=== PATIENT | female | born 1995 | race Two or more races ===

== ENCOUNTER → 2018-06-14 11:40 | Outpatient (CLI) | payer OTHER, SELFPAY ==
[2018-06-14 12:10] LABS: Basophils % 0.4 % (0.1-2.0); Eosinophils # 0.1 K/mm3 (0.0-0.4); Eosinophils % 1.3 % (0.1-12.0); Hematocrit 33.8 % (37.0-47.0); Hemoglobin 11.2 g/dL (12.2-16.2); Lymphocytes # 1.9 K/mm3 (0.7-4.5); Lymphocytes % 22.5 K/mm3 (10-50); Mean Corpuscular HGB Conc 33.2 g/dL (31.8-35.4); Mean Corpuscular Hemoglobin 28.5 pg (27.0-31.2); Mean Corpuscular Volume 85.9 fl (81-99); Mean Platelet Volume 7.8 fl (7.4-10.4); Monocytes # 0.4 K/mm3 (0.1-1.0); Neutrophils # 6.2 K/mm3 (1.8-7.8); Neutrophils % 71.8 % (37.0-80.0); Platelet Count 225 K/mm3 (142-424); Red Blood Count 3.93 M/mm3 (4.20-5.40); Red Cell Distribution Width 14.3 % (11.5-17.5); White Blood Count 8.6 K/mm3 (4.8-10.8)
[2018-06-15 19:04] LABS: HIV Screen 4th Generation wRfx Non Reactive (Non Reactive)
[2018-06-15 19:05] LABS: Hepatitis B Surface Antigen Negative (Negative); Hepatitis C Antibody 0.1 s/co ratio (0.0-0.9)
== END ==
PROVIDERS: Visit Provider Obstetrics & Gynecology
DX: Z34.90 Encounter for supervision of normal pregnancy, unspecified, unspecified trimester (principal)
CPT/HCPCS: 36415; 85025; 86592; 86703; 86762; 86850; 87086; 87088; 87340; 87380; G0432

== ENCOUNTER → 2018-07-12 10:36 | Outpatient (CLI) | payer OTHER, SELFPAY ==
--- NOTE | 2018-07-12 10:38 | US_ITS ---
US OB /maternal detail: INDICATION: ITS.REASON: US OB Complete ORDERING PHYSICIAN: Mandie Patton MD PATIENT AGE: 23 years TECHNIQUE: ultrasound transabdominal scanning. COMPARISON: No previous relevant studies. FINDINGS: Single viable intrauterine gestation. Breech position. Placenta: Anterior placenta grade 1. There is average amount fluid. The cervix appears satisfactory. Closed and measuring 3.7 cm in length. Complete survey performed and was unremarkable on the submitted images as in PACS. No discrete anomalies identified on survey imaging by technologist. Active fetus. Three-vessel cord with satisfactory umbilical cord insertion. 4- chamber heart noted. Survey of brain & ventricles unremarkable. Face and neck survey unremarkable. Diaphragm and chest views unremarkable. Abdomen: Both kidneys noted and unremarkable. Stomach noted and satisfactory. Spine: Survey of the spine satisfactory with no anomalies identified nor imaged. Both arms and legs noted. Amniotic Fluid: Adequate. Maternal adnexa: No significant findings. Measurements: Average ultrasound age 19w6d. Gestational Age 20w1d. Estimated due date by ultrasound age 0211/30/2018. Estimated weight 313 grams. BPD = 20w0d OFD = 20w4d HC = 19w4d AC = 19w5d FL = 20w0d Growth Percentile= 27% Heart Rate = 143 bpm Cerebellum = 19w6d Humerus = 19w6d HC/AC is 1.18 (1.09-1.26). CI is 76% (70-86%). FL/BPD is 69 %. FL/AC is 22%. IMPRESSION: There is a single live fetus in breech presentation. Average ultrasound age is 19 weeks and 6 days. All parameters correlate. No obvious anomalies. Placenta is anterior and grade 1 without evidence of previa. Please see above for detail
== END ==
PROVIDERS: Visit Provider Obstetrics & Gynecology
DX: Z36.0 Encounter for antenatal screening for chromosomal anomalies (principal)
CPT/HCPCS: 76811

== ENCOUNTER → 2018-08-22 08:21 | Outpatient (CLI) | payer OTHER, SELFPAY ==
[2018-08-22 08:45] LABS: Glucose,Fasting 76 mg/dL (60-105)
[2018-08-22 10:18] LABS: Glucose 1 Hour 105 mg/dL (74-106)
== END ==
PROVIDERS: Visit Provider Obstetrics & Gynecology
DX: Z34.90 Encounter for supervision of normal pregnancy, unspecified, unspecified trimester (principal)
CPT/HCPCS: 36415; 82951

== ENCOUNTER → 2018-10-18 11:31 | Outpatient (CLI) | payer OTHER, SELFPAY ==
[2018-10-18 12:17] LABS: Basophils # 0.1 K/mm3 (0-0.2); Basophils % 0.6 % (0.1-2.0); Eosinophils # 0.2 K/mm3 (0.0-0.4); Eosinophils % 1.7 % (0.1-12.0); Hematocrit 34.5 % (37.0-47.0); Hemoglobin 10.9 g/dL (12.2-16.2); Lymphocytes # 2.6 K/mm3 (0.7-4.5); Lymphocytes % 29.3 % (10-50); Mean Corpuscular HGB Conc 31.6 g/dL (31.8-35.4); Mean Corpuscular Hemoglobin 26.2 pg (27.0-31.2); Mean Corpuscular Volume 82.7 fl (81-99); Mean Platelet Volume 8.9 fl (7.4-10.4); Monocytes # 0.4 K/mm3 (0.1-1.0); Monocytes % 4.2 % (1.7-9.3); Neutrophils # 5.7 K/mm3 (1.8-7.8); Neutrophils % 64.2 % (37.0-80.0); Platelet Count 291 K/mm3 (142-424); Red Blood Count 4.18 M/mm3 (4.20-5.40); Red Cell Distribution Width 13.7 % (11.5-17.5); White Blood Count 8.8 K/mm3 (4.8-10.8)
[2018-10-18 14:32] LABS: Alanine Aminotransferase 26 U/L (12-78); Albumin Level 2.5 gm/dL (3.4-5.0); Albumin/Globulin Ratio 0.6 (1.1-1.8); Alkaline Phosphatase 261 U/L (46-116); Anion Gap 15.8 mEq/L (5-15); Aspartate Amino Transferase 26 U/L (15-37); Bilirubin,Total 0.4 mg/dL (0.2-1.0); Blood Urea Nitrogen 9 mg/dL (7-18); Calcium 8.3 mg/dL (8.5-10.1); Carbon Dioxide 21 mmol/L (21.0-32.0); Chloride 103 mmol/L (98-107); Creatinine,Serum 0.59 mg/dL (0.55-1.02); Estimated Glomerular Filt Rate 127 ml/min (>60); GFR (African American) 154 ML/MIN (>60); Globulin 4.1 gm/dl (1.3-3.2); Glucose 93 mg/dL (74-106); Potassium 3.8 mmoL/L (3.5-5.1); Sodium 136 mmol/L (136-145); Total Protein,Serum 6.6 gm/dL (6.4-8.2); Uric Acid 4.5 mg/dL (2.6-7.2)
== END ==
PROVIDERS: Visit Provider Obstetrics & Gynecology
DX: Z34.90 Encounter for supervision of normal pregnancy, unspecified, unspecified trimester (principal)
CPT/HCPCS: 36415; 80053; 82239; 84550; 85025

== ENCOUNTER → 2018-11-01 17:42 | Outpatient (CLI) | payer OTHER, SELFPAY | PROVIDERS: Visit Provider Obstetrics & Gynecology | DX: Z34.90 Encounter for supervision of normal pregnancy, unspecified, unspecified trimester (principal) | CPT/HCPCS: 86403 ==

== ENCOUNTER 2018-11-21 06:11 | Inpatient (IN) ==
[2018-11-21 11:19] LABS: Basophils % 0.4 % (0.1-2.0); Eosinophils # 0.1 K/mm3 (0.0-0.4); Eosinophils % 0.7 % (0.1-12.0); Hematocrit 35.4 % (37.0-47.0); Hemoglobin 11.4 g/dL (12.2-16.2); Lymphocytes # 1.5 K/mm3 (0.7-4.5); Lymphocytes % 18.9 % (10-50); Mean Corpuscular HGB Conc 32.2 g/dL (31.8-35.4); Mean Corpuscular Hemoglobin 26.4 pg (27.0-31.2); Mean Corpuscular Volume 82.3 fl (81-99); Mean Platelet Volume 11.5 fl (7.4-10.4); Monocytes # 0.2 K/mm3 (0.1-1.0); Monocytes % 2.6 % (1.7-9.3); Neutrophils # 6.1 K/mm3 (1.8-7.8); Neutrophils % 77.4 % (37.0-80.0); Platelet Count 205 K/mm3 (142-424); Red Blood Count 4.31 M/mm3 (4.20-5.40); Red Cell Distribution Width 16.7 % (11.5-17.5); White Blood Count 7.9 K/mm3 (4.8-10.8)
[2018-11-21 14:04] LABS: Microscopic, Urine URINE MICROSCOPIC (MICROSCOPIC)
[2018-11-21 14:06] LABS: Appearance,Urine CLEAR (Clear); Bilirubin,Urine Negative (Negative); Blood, Urine TRACE-I (Negative); Color,Urine YELLOW (Yellow); Glucose,Urine (UA) Negative (Negative); Ketones,Urine Negative (Negative); Leukocyte Esterase,Urine 1+ (Negative); Protein,Urine Negative (Negative); Urobilinogen,Urine 0.2 EU/dl (0.2)
[2018-11-21 14:27] LABS: Bacteria,Urine 1+ /lpf; RBC,Urine Occasional #/hpf (0-3)
--- NOTE | 2018-11-21 18:04 | History & Physical Report ---
OB - H&P: HPI Antepartum - History of Present Illness Chief complaint: contractions History of present illness: 23 yo G1 @ 38+ wks moldovan speaking only patient presented to triage this am with complaint of contractions/pain. History obtained with assistance of parts room assistant. Contractions began approximately 2am; no LOF or VB. Normal FM. care has been at [facility] and has been largely uncomplicated. Initial labs showed +VDRL but confirmatory testing with Health depart ment was negative. - History of Present care: good care [facility] History I have reviewed the patient's past medical history: Yes Medical History: Denies:: Anxiety, Depression, Diabetes Mellitus Type 1, MRSA, Seizures *Have you ever received a pneumonia vaccine?: No *Have you received a flu vaccine this season?: No Other Surgeries: No: Amputation: No Fractures: No - *Social History Smoking Status: Never smoker Alcohol Intake: never Substance Use Type: denies use *Occupational Status:: unemployed - Psychiatric History Pschychiatric History:: Denies:: Anxiety, Depression Family Hx:: No significant family history Para: 0 Review of Systems - Review of Systems CONSTITUTIONAL: no fever/chills HEENT: no oral lesions PULMONARY: no shortness of breath or difficulty breathing CV: no racing heart, palpitations or chest pain ABD: no abdominal pain, N/V : + contractions SKIN: no new rash or skin lesions EXT: no edema NEURO: no mental status changes PSYCH: no current anxiety/depression Meds Home Medications Medication Instructions Recorded Confirmed Type 1 tab PO HS 05/10/18 11/21/18 History vitamin,calcium,pmbcelyw-wyoo-ewcrf acid tablet Allergies Allergy/AdvReac Type Severity Reaction Status Date / Time No Known Allergies Allergy Verified 11/08/18 11:13 OB - H&P: Exam - Physical Exam Vital signs: Temp Pulse Resp BP Pulse Ox 98.2 F 59 L 20 129/80 98 11/21/18 06:52 11/21/18 06:52 11/21/18 06:52 11/21/18 06:52 11/21/18 06:52 Narrative: CONSTITUTIONAL: no acute distress HEENT: mucous membranes moist PULMONARY: breathing unlabored without audible wheezes CV: no tachycardia or visible JVD; normal LE peripheral pulses ABD: soft, NT/ND, no guarding. Gravid uterus. : cervix 3/90/0c AROM with thick meconium noted. IUPC and FSE placed without difficulty. SKIN: no visible rash or lesions HEME: no lymphadenopathy EXT: 1+ edema LEs NEURO: alert/oriented, no altered mental status PSYCH: appropriate mood and demeanor without visible anxiety/depression NST: [place]: 150 Variability: moderate Accelerations: yes Decelerations: no Impression: Reactive, Category 1 OB - Results - Labs Labs: Short CBC 11/21/18 Range/Units 09:35 WBC 7.9 (4.8-10.8) K/mm3 Hgb 11.4 L (12.2-16.2) g/dL Hct 35.4 L (37.0-47.0) % Plt Count 205 (142-424) K/mm3 Urine 11/21/18 Range/Units 07:25 Urine Color Yellow (Yellow) Urine Appearance Clear (Clear) Urine pH 6.0 (5.0-8.5) Ur Specific [place] 1.020 (1.005-1.030) Urine Protein Negative (Negative) Urine Glucose (UA) Negative (Negative) OB - A/P Antepartum (1) 38 weeks gestation of Current visit: Yes Status: Acute (2) Language barrier affecting health care Problem details: Monegasque speaking only Current visit: Yes Status: Acute (3) Active labor at term Current visit: Yes Status: Acute (4) Meconium in amniotic fluid Current visit: Yes Status: Acute (5) Anemia affecting Problem details: Hgb 10.9 Current visit: Yes Status: Acute - Additional Plan Additional Information:: Admission for active labor Plasterer Maintenance assistance during labor, delivery and Considering options for pain medication but undecided at this point Continuous monitoring with FSE Peds present for delivery with thick meconium
--- NOTE | 2018-11-21 18:18 | Procedure Note ---
- Delivery Note Delivery Date:: 11/21/18 Delivery Time:: 15:30 Anesthesia Type: None Was labor medically induced?: No Gestational age (weeks): 38 delivered prior to 39 weeks?: Yes Justification for early elective delivery:: Active Labor Infant Gender: Female at 1 minute: 7 at 5 minutes: 9 Delivery Procedure:: Spontaneous vaginal delivery of vigorous liveborn female infant over intact perineum. Apgars: 7 & 9 Delivery uncomplicated; no shoulder dystocia with delivery Nuchal cord x 1 reduced on perineum taken to warmer for outreach and education social worker assessment immediately after umbilical cord clamped/cut Placenta spontaneously expressed and examined; noted to be complete/intact. Vulva, vagina, and cervix inspected; 2nd degree laceration repaired with 2-0 vicryl after subcutaneous injection of 8cc lidocaine 1% (without epi) Total EBL: 200cc All sponge/needle/instrument counts correct at conclusion of procedure Disposition: Mom/baby stable to recovery in LDRP Laceration:: vaginal Placental Delivery Description: Spontaneous
[2018-11-22 06:55] LABS: Hematocrit 28.7 % (37.0-47.0)
[2018-11-22 07:32] LABS: Hemoglobin 9.6 g/dL (12.2-16.2)
[2018-11-22 08:30] VITALS: BP 129/80
--- NOTE | 2018-11-22 18:42 | Progress Note ---
Internal Medicine - PN: Subj *Date: 11/22/18 *Time: 12:10 Interval history: PPD #1 No complaints Exam Vital signs and Labs for Last 24 Hours: Temp Pulse Resp BP Pulse Ox 97.9 F 168 H 72 H 129/80 98 11/21/18 18:00 11/21/18 18:00 11/21/18 18:00 11/21/18 06:52 11/21/18 06:52 Laboratory Results - last 24 hr 11/22/18 06:20: Hgb 9.6 L D, Hct 28.7 L I & O for Last 24 hours: Intake & Output 11/20/18 11/21/18 11/22/18 11/23/18 11:59 11:59 11:59 11:59 Intake Total Balance Weight 123 lb Microbiology Reports for the Last 24 Hours: Microbiology 11/21/18 07:25 Urine,Clean Catch Urine Culture - Preliminary Narrative: CONSTITUTIONAL: no acute distress HEENT: mucous membranes moist PULMONARY: breathing unlabored without audible wheezes CV: no tachycardia or visible JVD; normal LE peripheral pulses ABD: soft, NT/ND, no guarding : fundus firm at/below umbilicus SKIN: no visible rash or lesions EXT: 1+ edema LEs NEURO: alert/oriented, no altered mental status PSYCH: appropriate mood and demeanor without visible anxiety/depression Assessment and Plan (1) 38 weeks gestation of Current visit: Yes Status: Acute Category: Medical Code(s): Z3A.38 - 38 weeks gestation of (2) Language barrier affecting health care Problem details: Mohawk speaking only Current visit: Yes Status: Acute Category: Social Hx Code(s): Z78.9 - Other specified health status (3) Active labor at term Current visit: Yes Status: Acute Category: Medical (4) Meconium in amniotic fluid Current visit: Yes Status: Acute Category: Medical Code(s): P96.83 - Meconium staining (5) Anemia affecting Problem details: Hgb 10.9 Current visit: Yes Status: Acute Category: Medical Code(s): O99.019 - Anemia complicating , unspecified trimester - Assessment and plan all Dx Assessment and Plan for all problems:: Routine care Anticipate discharge tomorrow Continue PNV with FeSO4 for acute on chronic anemia
--- NOTE | 2018-11-23 07:41 | Discharge Summary ---
General - General Admission date:: 11/21/18 Discharge date: 11/23/18 HPI HPI: active labor with normal course routine without complications [id number] anemia without symptoms Discharged home on ppd #2 Hospital Course Hospital Course: normal course Rhogam Administration: Not Indicated Objective Vital signs: Temp Pulse Resp BP Pulse Ox 97.9 F 168 H 72 H 129/80 98 11/21/18 18:00 11/21/18 18:00 11/21/18 18:00 11/21/18 06:52 11/21/18 06:52 Narrative: CONSTITUTIONAL: no acute distress HEENT: mucous membranes moist PULMONARY: breathing unlabored without audible wheezes CV: no tachycardia or visible JVD; normal LE peripheral pulses ABD: soft, NT/ND, no guarding : fundus firm at/below umbilicus SKIN: no visible rash or lesions EXT: 1+ edema LEs NEURO: alert/oriented, no altered mental status PSYCH: appropriate mood and demeanor without visible anxiety/depression DS: Diagnosis - Discharge Diagnosis (1) 38 weeks gestation of Status: Acute (2) Language barrier affecting health care Status: Acute Problem details: Arabic speaking only (3) Active labor at term Status: Acute (4) Meconium in amniotic fluid Status: Acute (5) Anemia affecting Status: Acute Problem details: Hgb 10.9 Discharge Plan - Patient Discharge Instructions ACTIVITY: Continue current activity DIET: regular diet Patient Instructions: Epidural Anesthesia in Childbirth - Follow up Plan Disposition: Home, Self-Snf Medications: Home Medications Medication Instructions Recorded Confirmed Type 1 tab PO HS 05/10/18 11/21/18 History vitamin,calcium,nghptdic-wddc-gemsd acid tablet Prescriptions/Medication Reconciliation: New Ibuprofen [Motrin 400mg tablet] 800 mg PO Q6HP PRN tablet PRN Reason: Mild To Moderate Pain Continue vitamin,calcium,nbnxawzz-toiq-gfddq acid tablet 1 tab PO HS
== END 2018-11-23 11:02 | disposition home or self-care (01) | DRG 807 ==
LOC: OBOUT 06:11 → OB 06:14
PROVIDERS: ADMIT Obstetrics & Gynecology; ATTEND Obstetrics & Gynecology
CPT/HCPCS: 36415; 59025; 81001; 85014; 85018; 85025; 86850; 87086; 94761; 96360; C1758; J2405